=== PATIENT | male | born 1960 | race Caucasian/White ===

== ENCOUNTER → 2017-09-18 | Outpatient (CLI) | payer BC ==
[2017-09-18 10:41] LABS: ABSOLUTE BASOPHILS # (AUTO) 0.1 10^3/uL (0.0-0.2); ABSOLUTE EOSINOPHILS # (AUTO) 0.2 10^3/uL (0.0-0.6); ABSOLUTE LYMPHOCYTES (AUTO) 1.6 10^3/uL (0.5-4.7); ABSOLUTE MONOCYTES (AUTO) 0.4 10^3/uL (0.1-1.4); ABSOLUTE NEUT (AUTO) 3.6 10^3/uL (1.7-8.2); BASOPHILS % (AUTO) 1.8 % (0-2); EOSINOPHILS % (AUTO) 3.7 % (0-6); HEMATOCRIT 43.1 % (37.9-51.0); LYMPHOCYTES % (AUTO) 27.3 % (13-45); MEAN CORPUSCULAR HEMOGLOBIN 31.9 pg (27.0-33.4); MEAN CORPUSCULAR HGB CONC 34.8 g/dL (32.0-36.0); MEAN CORPUSCULAR VOLUME 92 fl (80-97); MONOCYTES % (AUTO) 6.2 % (3-13); PLATELET COUNT 283 10^3/uL (150-450); RED BLOOD COUNT 4.71 10^6/uL (4.35-5.55); RED CELL DISTRIBUTION WIDTH 12.9 % (11.5-14.0); TOTAL CELLS COUNTED % (AUTO) 100 %; WHITE BLOOD COUNT 5.8 10^3/uL (4.0-10.5)
[2017-09-18 11:14] LABS: ALANINE AMINOTRANSFERASE 45 U/L (21-72); ALBUMIN 4.6 g/dL (3.5-5.0); ALKALINE PHOSPHATASE 46 U/L (38-126); ANION GAP 12 (5-19); ASPARTATE AMINO TRANSFERASE 42 U/L (17-59); BILIRUBIN,DIRECT 0.4 mg/dL (0.0-0.4); BILIRUBIN,TOTAL 0.6 mg/dL (0.2-1.3); BLOOD UREA NITROGEN 21 mg/dL (7-20); CALCIUM 10.1 mg/dL (8.4-10.2); CARBON DIOXIDE 24 mmol/L (22-30); CHLORIDE 107 mmol/L (98-107); GLUCOSE 103 mg/dL (75-110); POTASSIUM 5.8 mmol/L (3.6-5.0); SODIUM 143.1 mmol/L (137-145); TOTAL PROTEIN 8.1 g/dL (6.3-8.2)
[2017-09-18 11:18] LABS: C-REACTIVE PROTEIN < 5.0 mg/L (<10.0)
--- NOTE | 2017-09-18 11:24 | RADIOLOGY REPORT (SQ) ---
EXAM DESCRIPTION: FOOT LEFT COMPLETE COMPLETED DATE/TIME: 09/18/2017 10:49 am REASON FOR STUDY: NON PRESSURE ULCER LEFT FOOT FAT LAYER EXPOSED L97.522 NON-PRS CHRONIC ULCER OTH PRT LEFT FOOT W FAT LAYER COMPARISON: None. NUMBER OF VIEWS: Three views. TECHNIQUE: AP, lateral and oblique radiographic images acquired of the left foot. LIMITATIONS: None. FINDINGS: MINERALIZATION: Normal. BONES: No fracture dislocation. No evidence of osteomyelitis. JOINTS: No effusions. SOFT TISSUES: No soft tissue swelling. No foreign body. OTHER: No other significant finding. IMPRESSION: NEGATIVE STUDY OF THE LEFT FOOT. NO RADIOGRAPHIC EVIDENCE OF ACUTE INJURY OR OSTEOMYELIT IS. TECHNICAL DOCUMENTATION: JOB ID: [id number] [employer]- All Rights Reserved Reading location - IP/workstation name: [email or web address]
[2017-09-18 11:37] LABS: ERYTHROCYTE SEDIMENTATION RATE 26 mm/hr (0-20)
== END ==
LOC: OD 10:09
PROVIDERS: ATTEND Preventive Medicine Undersea and Hyperbaric Medicine
DX: L97.522 Non-pressure chronic ulcer of other part of left foot with fat layer exposed (principal)
CPT/HCPCS: 36415; 80053; 85025; 85652; 86140

== ENCOUNTER → 2017-11-18 | Outpatient (CLI) | payer BC ==
[2017-11-18 13:56] LABS: ABSOLUTE BASOPHILS # (AUTO) 0.1 10^3/uL (0.0-0.2); ABSOLUTE EOSINOPHILS # (AUTO) 0.2 10^3/uL (0.0-0.6); ABSOLUTE LYMPHOCYTES (AUTO) 1.3 10^3/uL (0.5-4.7); ABSOLUTE MONOCYTES (AUTO) 0.5 10^3/uL (0.1-1.4); ABSOLUTE NEUT (AUTO) 4.1 10^3/uL (1.7-8.2); EOSINOPHILS % (AUTO) 3.3 % (0-6); HEMATOCRIT 42.2 % (37.9-51.0); HEMOGLOBIN 14.7 g/dL (13.5-17.0); LYMPHOCYTES % (AUTO) 21.7 % (13-45); MEAN CORPUSCULAR HEMOGLOBIN 31.6 pg (27.0-33.4); MEAN CORPUSCULAR HGB CONC 34.9 g/dL (32.0-36.0); MEAN CORPUSCULAR VOLUME 91 fl (80-97); MONOCYTES % (AUTO) 7.9 % (3-13); PLATELET COUNT 250 10^3/uL (150-450); RED BLOOD COUNT 4.65 10^6/uL (4.35-5.55); RED CELL DISTRIBUTION WIDTH 13.2 % (11.5-14.0); SEGMENTED NEUTROPHILS % (AUTO) 66.1 % (42-78); TOTAL CELLS COUNTED % (AUTO) 100 %; WHITE BLOOD COUNT 6.1 10^3/uL (4.0-10.5)
[2017-11-18 14:23] LABS: BLOOD UREA NITROGEN 20 mg/dL (7-20); CALCIUM 10.3 mg/dL (8.4-10.2); GLUCOSE 154 mg/dL (75-110)
[2017-11-18 14:24] LABS: ALANINE AMINOTRANSFERASE 31 U/L (21-72); ALBUMIN 4.4 g/dL (3.5-5.0); ALKALINE PHOSPHATASE 52 U/L (38-126); ANION GAP 12 (5-19); ASPARTATE AMINO TRANSFERASE 28 U/L (17-59); BILIRUBIN,DIRECT 0.4 mg/dL (0.0-0.4); CARBON DIOXIDE 27 mmol/L (22-30); CHLORIDE 104 mmol/L (98-107); POTASSIUM 4.5 mmol/L (3.6-5.0); SODIUM 142.7 mmol/L (137-145); TOTAL PROTEIN 7.6 g/dL (6.3-8.2)
[2017-11-18 14:46] LABS: ERYTHROCYTE SEDIMENTATION RATE 41 mm/hr (0-20)
== END ==
LOC: OD 12:27
PROVIDERS: ATTEND Preventive Medicine Undersea and Hyperbaric Medicine
DX: L97.522 Non-pressure chronic ulcer of other part of left foot with fat layer exposed (principal)
CPT/HCPCS: 36415; 80053; 85025; 85652; 86140

== ENCOUNTER → 2017-11-21 | Outpatient (CLI) | payer BC ==
--- NOTE | 2017-11-23 18:14 | RADIOLOGY REPORT (SQ) ---
EXAM DESCRIPTION: MRI LT LOWER EXTREMITY COMBO COMPLETED DATE/TIME: 11/21/2017 9:24 am REASON FOR STUDY: L97.522 NON-PRESSURE CHRONIC ULCER OF OTHER PART OF LEFT FOOT WITH FAT LAYE L97.52 2 NON-PRS CHRONIC ULCER OTH PRT LEFT FOOT W FAT LAYER COMPARISON: None. TECHNIQUE: Multiplanar imaging of the left foot to include T1-weighted, postcontrast T1-weighted, an d T2-weighted images. CONTRAST TYPE AND DOSE: 10 mL Prohance. RENAL FUNCTION: GFR 50 LIMITATIONS: None. FINDINGS: BONE MARROW: No marrow signal alteration. Specifically no marrow replacement or marrow ed darline. No evidence for osteomyelitis. No cortical break through. SOFT TISSUES: Plantar wound consistent with known ulcer underlying the great toe roughly at the MP genet int extending laterally between the 1st and 2nd toes and lying adjacent to the lateral hallux sesamoi d. This extends close to 2.9 cm along the length of the toe, nearly 2.2 cm transverse dimension. Mi ld regional edema and associated skin thickening but no enhancing or drainable fluid collections. No significant fluid in the tendon sheaths. OTHER: No other significant finding. IMPRESSION: Plantar ulcer without abscess or suggestion of osteomyelitis. TECHNICAL DOCUMENTATION: JOB ID: [id number] [employer]- All Rights Reserved Reading location - IP/workstation name: [email or web address]
== END ==
LOC: RAD 08:02
PROVIDERS: ATTEND Preventive Medicine Undersea and Hyperbaric Medicine
DX: L97.522 Non-pressure chronic ulcer of other part of left foot with fat layer exposed (principal)
CPT/HCPCS: 82565; 73720; A9576

== ENCOUNTER → 2018-01-26 | Outpatient (CLI) | payer BC ==
[2018-01-26 16:50] LABS: ABSOLUTE BASOPHILS # (AUTO) 0.1 10^3/uL (0.0-0.2); ABSOLUTE EOSINOPHILS # (AUTO) 0.2 10^3/uL (0.0-0.6); ABSOLUTE LYMPHOCYTES (AUTO) 1.6 10^3/uL (0.5-4.7); ABSOLUTE MONOCYTES (AUTO) 0.3 10^3/uL (0.1-1.4); ABSOLUTE NEUT (AUTO) 2.7 10^3/uL (1.7-8.2); BASOPHILS % (AUTO) 1.3 % (0-2); EOSINOPHILS % (AUTO) 3.2 % (0-6); HEMATOCRIT 41.4 % (37.9-51.0); HEMOGLOBIN 14.6 g/dL (13.5-17.0); LYMPHOCYTES % (AUTO) 32.6 % (13-45); MEAN CORPUSCULAR HEMOGLOBIN 31.4 pg (27.0-33.4); MEAN CORPUSCULAR HGB CONC 35.3 g/dL (32.0-36.0); MEAN CORPUSCULAR VOLUME 89 fl (80-97); MONOCYTES % (AUTO) 6.6 % (3-13); PLATELET COUNT 197 10^3/uL (150-450); RED BLOOD COUNT 4.65 10^6/uL (4.35-5.55); RED CELL DISTRIBUTION WIDTH 13.5 % (11.5-14.0); SEGMENTED NEUTROPHILS % (AUTO) 56.3 % (42-78); TOTAL CELLS COUNTED % (AUTO) 100 %; WHITE BLOOD COUNT 4.9 10^3/uL (4.0-10.5)
[2018-01-26 17:09] LABS: ALANINE AMINOTRANSFERASE 29 U/L (21-72); ALBUMIN 4.2 g/dL (3.5-5.0); ALKALINE PHOSPHATASE 52 U/L (38-126); ANION GAP 11 (5-19); ASPARTATE AMINO TRANSFERASE 23 U/L (17-59); BILIRUBIN,DIRECT 0.4 mg/dL (0.0-0.4); BILIRUBIN,TOTAL 1.1 mg/dL (0.2-1.3); BLOOD UREA NITROGEN 18 mg/dL (7-20); C-REACTIVE PROTEIN 5.3 mg/L (<10.0); CALCIUM 9.7 mg/dL (8.4-10.2); CARBON DIOXIDE 25 mmol/L (22-30); CHLORIDE 105 mmol/L (98-107); GLUCOSE 176 mg/dL (75-110); POTASSIUM 4.6 mmol/L (3.6-5.0); SODIUM 141.4 mmol/L (137-145); TOTAL PROTEIN 7.1 g/dL (6.3-8.2)
[2018-01-26 17:29] LABS: ERYTHROCYTE SEDIMENTATION RATE 15 mm/hr (0-20)
== END ==
LOC: OD 15:47
PROVIDERS: ATTEND Preventive Medicine Undersea and Hyperbaric Medicine
DX: E11.621 Type 2 diabetes mellitus with foot ulcer (principal); L97.522 Non-pressure chronic ulcer of other part of left foot with fat layer exposed
CPT/HCPCS: 36415; 80053; 83036; 85025; 85652; 86140

== ENCOUNTER → 2018-02-20 | Outpatient (CLI) | payer BC ==
[2018-02-20 17:06] LABS: ABSOLUTE BASOPHILS # (AUTO) 0.1 10^3/uL (0.0-0.2); ABSOLUTE EOSINOPHILS # (AUTO) 0.2 10^3/uL (0.0-0.6); ABSOLUTE LYMPHOCYTES (AUTO) 1.9 10^3/uL (0.5-4.7); ABSOLUTE MONOCYTES (AUTO) 0.4 10^3/uL (0.1-1.4); ABSOLUTE NEUT (AUTO) 2.9 10^3/uL (1.7-8.2); BASOPHILS % (AUTO) 1.1 % (0-2); EOSINOPHILS % (AUTO) 3.8 % (0-6); HEMATOCRIT 45.6 % (37.9-51.0); HEMOGLOBIN 15.8 g/dL (13.5-17.0); LYMPHOCYTES % (AUTO) 34.7 % (13-45); MEAN CORPUSCULAR HEMOGLOBIN 31.2 pg (27.0-33.4); MEAN CORPUSCULAR HGB CONC 34.7 g/dL (32.0-36.0); MEAN CORPUSCULAR VOLUME 90 fl (80-97); MONOCYTES % (AUTO) 6.8 % (3-13); PLATELET COUNT 203 10^3/uL (150-450); RED BLOOD COUNT 5.07 10^6/uL (4.35-5.55); RED CELL DISTRIBUTION WIDTH 13.9 % (11.5-14.0); SEGMENTED NEUTROPHILS % (AUTO) 53.6 % (42-78); TOTAL CELLS COUNTED % (AUTO) 100 %; WHITE BLOOD COUNT 5.5 10^3/uL (4.0-10.5)
--- NOTE | 2018-02-20 17:11 | RADIOLOGY REPORT (SQ) ---
EXAM DESCRIPTION: CHEST PA/LATERAL COMPLETED DATE/TIME: 02/20/2018 4:44 pm REASON FOR STUDY: CHEST CONGESTION; RT FLANK PAIN COMPARISON: Abdominal films same date EXAM PARAMETERS: NUMBER OF VIEWS: two views TECHNIQUE: Digital Frontal and Lateral radiographic views of the chest acquired. RADIATION DOSE: NA LIMITATIONS: none FINDINGS: LUNGS AND PLEURA: No acute infiltrates. No pleural effusion or pneumothorax. Minimal lef t basilar atelectasis. MEDIASTINUM AND HILAR STRUCTURES: No masses or contour abnormalities. HEART AND VASCULAR STRUCTURES: Heart normal size. No evidence for failure. BONES: Osteopenic. No acute fracture HARDWARE: None in the chest. OTHER: No other significant finding. IMPRESSION: No acute changes TECHNICAL DOCUMENTATION: JOB ID: [id number] [employer]- All Rights Reserved Reading location - IP/workstation name: [email or web address]
--- NOTE | 2018-02-20 17:12 | RADIOLOGY REPORT (SQ) ---
EXAM DESCRIPTION: KUB COMPLETED DATE/TIME: 02/20/2018 4:44 pm REASON FOR STUDY: CHEST CONGESTION; RT FLANK PAIN R09.89 OTH SYMPTOMS AND SIGNS INVOLVING THE CIRC AND RESP SY R10.9 UNSPECIFIED ABDOMINAL PAIN COMPARISON: Chest films same date NUMBER OF VIEWS: One view. TECHNIQUE: Supine radiographic image of the abdomen acquired. LIMITATIONS: None. FINDINGS: BOWEL GAS PATTERN: Normal bowel gas pattern. No dilated loops. CALCIFICATIONS: No suspicious calcifications. SOFT TISSUES: No gross mass or suggestion of organomegaly. HARDWARE: Surgical clips left upper quadrant post nephrectomy. Clips right upper quadrant post daniella cystectomy. Radiopaque sutures along the right inguinal region from remote prior inguinal hernia rep air BONES: No acute fracture. No worrisome bone lesions. OTHER: No other significant finding. IMPRESSION: NO RADIOGRAPHIC EVIDENCE FOR ACUTE ABDOMINAL DISEASE. TECHNICAL DOCUMENTATION: JOB ID: [id number] [employer]- All Rights Reserved Reading location - IP/workstation name: [email or web address]
[2018-02-20 17:29] LABS: ALANINE AMINOTRANSFERASE 30 U/L (21-72); ALKALINE PHOSPHATASE 73 U/L (38-126); ANION GAP 16 (5-19); ASPARTATE AMINO TRANSFERASE 26 U/L (17-59); BILIRUBIN,DIRECT 0.4 mg/dL (0.0-0.4); BLOOD UREA NITROGEN 20 mg/dL (7-20); C-REACTIVE PROTEIN < 5.0 mg/L (<10.0); CALCIUM 10.1 mg/dL (8.4-10.2); CARBON DIOXIDE 27 mmol/L (22-30); CHLORIDE 100 mmol/L (98-107); GLUCOSE 214 mg/dL (75-110); POTASSIUM 4.7 mmol/L (3.6-5.0); SODIUM 143.1 mmol/L (137-145)
[2018-02-20 17:47] LABS: ERYTHROCYTE SEDIMENTATION RATE 13 mm/hr (0-20)
== END ==
LOC: OD 15:49
PROVIDERS: ATTEND Family Medicine
DX: R10.9 Unspecified abdominal pain (principal); R09.89 Other specified symptoms and signs involving the circulatory and respiratory systems
CPT/HCPCS: 36415; 71046; 74018; 80053; 85025; 85652; 86140

== ENCOUNTER → 2018-05-14 | Outpatient (CLI) | payer BC ==
[2018-05-14 11:10] LABS: ABSOLUTE LYMPHOCYTES (AUTO) 0.8 10^3/uL (0.5-4.7); ABSOLUTE MONOCYTES (AUTO) 0.6 10^3/uL (0.1-1.4); ABSOLUTE NEUT (AUTO) 4.1 10^3/uL (1.7-8.2); BASOPHILS % (AUTO) 0.8 % (0-2); EOSINOPHILS % (AUTO) 0.8 % (0-6); HEMATOCRIT 44.2 % (37.9-51.0); HEMOGLOBIN 15.5 g/dL (13.5-17.0); LYMPHOCYTES % (AUTO) 14.9 % (13-45); MEAN CORPUSCULAR VOLUME 92 fl (80-97); MONOCYTES % (AUTO) 10.5 % (3-13); PLATELET COUNT 210 10^3/uL (150-450); RED BLOOD COUNT 4.83 10^6/uL (4.35-5.55); RED CELL DISTRIBUTION WIDTH 13.4 % (11.5-14.0); TOTAL CELLS COUNTED % (AUTO) 100 %; WHITE BLOOD COUNT 5.6 10^3/uL (4.0-10.5)
[2018-05-14 11:29] LABS: ALANINE AMINOTRANSFERASE 42 U/L (21-72); ALBUMIN 4.8 g/dL (3.5-5.0); ALKALINE PHOSPHATASE 60 U/L (38-126); ANION GAP 15 (5-19); ASPARTATE AMINO TRANSFERASE 34 U/L (17-59); BILIRUBIN,TOTAL 2.3 mg/dL (0.2-1.3); BLOOD UREA NITROGEN 25 mg/dL (7-20); CALCIUM 9.9 mg/dL (8.4-10.2); CARBON DIOXIDE 26 mmol/L (22-30); CHLORIDE 97 mmol/L (98-107); GLUCOSE 354 mg/dL (75-110); POTASSIUM 4.9 mmol/L (3.6-5.0); SODIUM 137.6 mmol/L (137-145); TOTAL PROTEIN 7.5 g/dL (6.3-8.2)
[2018-05-14 12:18] LABS: ERYTHROCYTE SEDIMENTATION RATE 25 mm/hr (0-20)
--- NOTE | 2018-05-14 12:31 | RADIOLOGY REPORT (SQ) ---
EXAM DESCRIPTION: FOOT LEFT COMPLETE COMPLETED DATE/TIME: 05/14/2018 10:14 am REASON FOR STUDY: NON-PRESSURE CHRONIC ULCER OF LEFT FOOT (L97.521) L97.521 NON-PRS CHRONIC ULCER O TH PRT L FOOT LIMITED TO BRKD COMPARISON: None. NUMBER OF VIEWS: Three views. TECHNIQUE: AP, lateral and oblique radiographic images acquired of the left foot. LIMITATIONS: None. FINDINGS: MINERALIZATION: Normal. BONES: No acute abnormality. Small plantar and dorsal calcaneal spurs. JOINTS: No effusions. SOFT TISSUES: No soft tissue swelling. No foreign body. OTHER: No other significant finding. IMPRESSION: Calcaneal spurs. There is no evidence of osteomyelitis. There is no acute osseous abno rmality. TECHNICAL DOCUMENTATION: JOB ID: [id number] [employer]- All Rights Reserved Reading location - IP/workstation name: [email or web address]
== END ==
LOC: WC 09:46
PROVIDERS: ATTEND Nurse Practitioner
DX: L97.521 Non-pressure chronic ulcer of other part of left foot limited to breakdown of skin (principal); M77.32 Calcaneal spur, left foot
CPT/HCPCS: 36415; 80053; 85025; 85652; 86140

== ENCOUNTER → 2018-06-12 | Outpatient (CLI) | payer BC ==
--- NOTE | 2018-06-12 10:10 | RADIOLOGY REPORT (SQ) ---
EXAM DESCRIPTION: C SP 4 OR 5 VIEWS COMPLETED DATE/TIME: 06/12/2018 9:31 am REASON FOR STUDY: CERVICAL RADICULOPATHY M54.12 M54.5 LOW BACK PAIN M54.12 RADICULOPATHY, CERVICAL REGION COMPARISON: None. NUMBER OF VIEWS: Five views. TECHNIQUE: AP, lateral, obliques and odontoid radiographic images acquired of the cervical spine. LIMITATIONS: None. FINDINGS: MINERALIZATION: Normal. ALIGNMENT: Anatomic. VERTEBRAE: Vertebral bodies of normal height. DISCS: Mild disc space loss of height with anterior osteophyte formation at C4-5 and C6-7. FORAMINA: Moderate right C3-4, C4-5, and C6-7 foraminal narrowing. Mild left foraminal narrowing at C6-7 LATERAL AND POSTERIOR ELEMENTS: Facets, lateral masses and spinous processes without significant find ings. HARDWARE: None in the spine. SOFT TISSUES: Carotid bifurcation calcification bilaterally OTHER: No other significant finding. IMPRESSION: Mild degenerative changes as above. Calcified carotid bifurcations bilaterally TECHNICAL DOCUMENTATION: JOB ID: [id number]- All Rights Reserved Reading location - IP/workstation name: [email or web address]
--- NOTE | 2018-06-12 10:11 | RADIOLOGY REPORT (SQ) ---
EXAM DESCRIPTION: LUMBAR SPINE COMPLETE COMPLETED DATE/TIME: 06/12/2018 9:31 am REASON FOR STUDY: LOW BACK PAIN LATERALLY WITH SCIATICA PRESENCE M54.5 M54.5 LOW BACK PAIN M54.12 RADICULOPATHY, CERVICAL REGION COMPARISON: None. NUMBER OF VIEWS: Five views including obliques. TECHNIQUE: AP, lateral, oblique, and sacral radiographic images acquired of the lumbar spine. LIMITATIONS: None. FINDINGS: MINERALIZATION: Normal. SEGMENTATION: Normal. No transitional anatomy. ALIGNMENT: Normal. VERTEBRAE: Maintained height. No fracture or worrisome bone lesion. DISCS: Preserved height. No significant osteophytes or end plate irregularity. POSTERIOR ELEMENTS: Pedicles and facets are intact. No pars defect or posterior arch defects. HARDWARE: None in the spine. Numerous surgical clips overlie the midline of the abdomen. PARASPINAL SOFT TISSUES: Normal. PELVIS: Intact as visualized. No fractures or worrisome bone lesions. SI joints intact. OTHER: No other significant finding. IMPRESSION: NORMAL 5 VIEW LUMBAR SPINE. TECHNICAL DOCUMENTATION: JOB ID: [id number]- All Rights Reserved Reading location - IP/workstation name: [email or web address]
== END ==
LOC: OD 08:59
PROVIDERS: ATTEND Family Medicine
DX: M54.12 Radiculopathy, cervical region (principal); M54.5 Low back pain
CPT/HCPCS: 72050; 72110

== ENCOUNTER → 2018-07-13 | Outpatient (CLI) | payer BC ==
[2018-07-13 09:45] LABS: ABSOLUTE BASOPHILS # (AUTO) 0.1 10^3/uL (0.0-0.2); ABSOLUTE EOSINOPHILS # (AUTO) 0.3 10^3/uL (0.0-0.6); ABSOLUTE LYMPHOCYTES (AUTO) 1.6 10^3/uL (0.5-4.7); ABSOLUTE MONOCYTES (AUTO) 0.3 10^3/uL (0.1-1.4); BASOPHILS % (AUTO) 1.3 % (0-2); HEMATOCRIT 44.1 % (37.9-51.0); HEMOGLOBIN 15.4 g/dL (13.5-17.0); LYMPHOCYTES % (AUTO) 30.5 % (13-45); MEAN CORPUSCULAR HEMOGLOBIN 31.8 pg (27.0-33.4); MEAN CORPUSCULAR VOLUME 91 fl (80-97); MONOCYTES % (AUTO) 5.8 % (3-13); PLATELET COUNT 199 10^3/uL (150-450); RED BLOOD COUNT 4.86 10^6/uL (4.35-5.55); RED CELL DISTRIBUTION WIDTH 12.8 % (11.5-14.0); SEGMENTED NEUTROPHILS % (AUTO) 56.4 % (42-78); TOTAL CELLS COUNTED % (AUTO) 100 %; WHITE BLOOD COUNT 5.4 10^3/uL (4.0-10.5)
[2018-07-13 10:18] LABS: ALANINE AMINOTRANSFERASE 48 U/L (21-72); ALBUMIN 4.5 g/dL (3.5-5.0); ALKALINE PHOSPHATASE 59 U/L (38-126); ANION GAP 9 (5-19); ASPARTATE AMINO TRANSFERASE 32 U/L (17-59); BILIRUBIN,DIRECT 0.3 mg/dL (0.0-0.4); BILIRUBIN,TOTAL 0.7 mg/dL (0.2-1.3); BLOOD UREA NITROGEN 30 mg/dL (7-20); CALCIUM 10.1 mg/dL (8.4-10.2); CARBON DIOXIDE 25 mmol/L (22-30); CHLORIDE 108 mmol/L (98-107); GLUCOSE 192 mg/dL (75-110); POTASSIUM 4.5 mmol/L (3.6-5.0); SODIUM 141.6 mmol/L (137-145); TOTAL PROTEIN 7.5 g/dL (6.3-8.2)
[2018-07-13 10:24] LABS: ERYTHROCYTE SEDIMENTATION RATE 10 mm/hr (0-20)
[2018-07-13 10:53] LABS: C-REACTIVE PROTEIN < 5.0 mg/L (<10.0)
--- NOTE | 2018-07-13 13:06 | RADIOLOGY REPORT (SQ) ---
EXAM DESCRIPTION: FOOT LEFT COMPLETE COMPLETED DATE/TIME: 07/13/2018 9:34 am REASON FOR STUDY: NON-PRS CHRONIC ULCER OTH PRT L FOOT LIMITED TO BRKDWN SKIN L97.521 NON-PRS CHRON IC ULCER OTH PRT L FOOT LIMITED TO BRKD COMPARISON: 05/14/3018 NUMBER OF VIEWS: Three views. TECHNIQUE: AP, lateral and oblique radiographic images acquired of the left foot. LIMITATIONS: None. FINDINGS: MINERALIZATION: Normal. BONES: No acute fracture, destruction of bone or dislocation. Calcaneal spurs. JOINTS: No effusions. SOFT TISSUES: No soft tissue swelling. No foreign body. OTHER: No other significant finding. IMPRESSION: 1. No significant interval changes since the prior examination dated 07/13/2018. No acut e osseous findings. 2. Calcaneal spurs. TECHNICAL DOCUMENTATION: JOB ID: [id number] [employer]- All Rights Reserved Reading location - IP/workstation name: [email or web address]
== END ==
LOC: WC 09:01
PROVIDERS: ATTEND Preventive Medicine Undersea and Hyperbaric Medicine
DX: L97.521 Non-pressure chronic ulcer of other part of left foot limited to breakdown of skin (principal)
CPT/HCPCS: 36415; 80053; 85025; 85652; 86140

== ENCOUNTER → 2020-01-05 | Outpatient (CLI) | payer BC ==
--- NOTE | 2020-01-05 08:28 | RADIOLOGY REPORT (SQ) ---
EXAM DESCRIPTION: CT ABD/PELVIS NO ORAL OR IV IMAGES COMPLETED DATE/TIME: 01/05/2020 7:25 am REASON FOR STUDY: K45.8 OTH ABDOMINAL HERNIA WITHOUT OBSTRUCTION OR GANGRENE K45.8 OTH ABDOMINAL HE RNIA WITHOUT OBSTRUCTION OR GANGRENE COMPARISON: None. TECHNIQUE: CT scan of the abdomen and pelvis performed without intravenous or oral contrast. Images reviewed with lung, soft tissue, and bone windows. Reconstructed coronal and sagittal MPR images revi ewed. All images stored on PACS. All CT scanners at this facility use dose modulation, iterative reconstruction, and/or weight based d osing when appropriate to reduce radiation dose to as low as reasonably achievable (ALARA). [facility]: Dose Right [facility]: CareDose [facility]: Dose Right [facility]: Teradose 4D [facility]: Smart Carmudi RADIATION DOSE: CT Rad equipment meets quality standard of care and radiation dose reduction techniq ues were employed. CTDIvol: 12.8 mGy. DLP: 678 mGy-cm.mGy. LIMITATIONS: None. FINDINGS: LOWER CHEST: Scarring in the anterior aspect of the right lung base. No consolidation. N o suspicious nodules. NON-CONTRASTED LIVER, SPLEEN, ADRENALS: The liver and adrenals are unremarkable. The spleen is part of a large posterior upper lateral wall hernia containing omental fat spleen and small bowel. No obs tructive changes. The hernia lies between the 10th and 11th posterior ribs. PANCREAS: Head and body of the pancreas appear normal. The tail the pancreas demonstrates loss of no rmal morphology. This is in the region of prior left nephrectomy. This could be secondary to postop for scar tissue although pancreatic mass or recurrent disease in the renal fossa. Recommend contras nathalia CT for further characterization. GALLBLADDER: Surgically absent. RIGHT KIDNEY AND URETER: No suspicious masses. Assessment limited by lack of IV contrast. No signif icant calcifications. No hydronephrosis or hydroureter. LEFT KIDNEY AND URETER: Prior left nephrectomy as described. Soft tissue attenuation in the left re nal bed which may be secondary to scarring. Recurrent tumor or pancreatic tail mass are all possibil ities. Contrasted study is recommended for further evaluation. AORTA AND RETROPERITONEUM: No aneurysm. No retroperitoneal masses or adenopathy. BOWEL AND PERITONEAL CAVITY: No obvious masses or inflammatory changes. No free fluid. APPENDIX: Normal. PELVIS, BLADDER, AND ABDOMINAL WALL:Postsurgical changes in the right inguinal region extending to th e pubic symphysis. Bladder is incompletely distended. BONES: No significant findings. OTHER: No other significant finding. IMPRESSION: 1. Large posterolateral wall abdominal hernia extending through the 10th and left checker dump grounds ior ribs. This includes omental fat, spleen and small bowel. No evidence of bowel obstruction. 2. Soft tissue mass in the left renal fossa. This could represent postoperative scar. Pancreatic t ail mass or recurrent disease in the left renal fossa cannot be excluded. Was the kidney removed for neoplasm? COMMENT: Quality ID # [id number]: Final reports with documentation of one or more dose reduction techniques (e.g., Automated exposure control, adjustment of the mA and/or kV according to patient size, use of iterative reconstruction technique) TECHNICAL DOCUMENTATION: JOB ID: [id number] [employer]- All Rights Reserved Reading location - IP/workstation name: [email or web address]
== END ==
LOC: RAD 07:17
PROVIDERS: ATTEND Surgery
DX: K45.8 Other specified abdominal hernia without obstruction or gangrene (principal)
CPT/HCPCS: 74176

== ENCOUNTER 2020-01-27 05:23 | Inpatient (IN) | payer BC ==
[2020-01-24 11:54] LABS: ABSOLUTE BASOPHILS # (AUTO) 0.1 10^3/uL (0.0-0.2); ABSOLUTE EOSINOPHILS # (AUTO) 0.5 10^3/uL (0.0-0.6); ABSOLUTE LYMPHOCYTES (AUTO) 1.5 10^3/uL (0.5-4.7); ABSOLUTE MONOCYTES (AUTO) 0.5 10^3/uL (0.1-1.4); ABSOLUTE NEUT (AUTO) 3.7 10^3/uL (1.7-8.2); EOSINOPHILS % (AUTO) 7.8 % (0-6); HEMATOCRIT 46.6 % (37.9-51.0); HEMOGLOBIN 16.1 g/dL (13.5-17.0); LYMPHOCYTES % (AUTO) 24.3 % (13-45); MEAN CORPUSCULAR HEMOGLOBIN 31.5 pg (27.0-33.4); MEAN CORPUSCULAR HGB CONC 34.5 g/dL (32.0-36.0); MEAN CORPUSCULAR VOLUME 91 fl (80-97); MONOCYTES % (AUTO) 7.8 % (3-13); PLATELET COUNT 198 10^3/uL (150-450); RED BLOOD COUNT 5.11 10^6/uL (4.35-5.55); RED CELL DISTRIBUTION WIDTH 13.1 % (11.5-14.0); SEGMENTED NEUTROPHILS % (AUTO) 58.1 % (42-78); TOTAL CELLS COUNTED % (AUTO) 100 %; WHITE BLOOD COUNT 6.4 10^3/uL (4.0-10.5)
[2020-01-24 12:14] LABS: ANION GAP 18 (5-19); BLOOD UREA NITROGEN 19 mg/dL (7-20); CALCIUM 9.9 mg/dL (8.4-10.2); CARBON DIOXIDE 18 mmol/L (22-30); CHLORIDE 107 mmol/L (98-107); GLUCOSE 73 mg/dL (75-110); POTASSIUM 4.9 mmol/L (3.6-5.0)
--- NOTE | 2020-01-24 19:54 | EKG REPORT ---
SEVERITY:- ABNORMAL ECG - SINUS RHYTHM NONSPECIFIC T ABNORMALITIES, LATERAL LEADS : Confirmed by: Taj Riojas 24-Jan-2020 19:53:28
[~2020-01-27 05:23] MED LIST: CEFAZOLIN 2 GM/D5W RTU 2 GM/50 ML RTUPB IV ONE; CEFAZOLIN 2 GM/D5W RTU 2 GM/50 ML RTUPB IV PRN; LIDOCAINE 0.5% INJ-PF (5 MG/ML) 50 ML SDV SUBCUT PRN; METRONIDAZOLE 500 MG/NS RTU 500 MG/100 ML RTUPB IV ONE; METRONIDAZOLE 500 MG/NS RTU 500 MG/100 ML RTUPB IV PRN; NORMAL SALINE 1000 ML (RENAL PATIENTS) IV PRN
[2020-01-27] MEDS ORDERED: FENTANYL CITRATE INJ/PF 100 MCG/2 ML AMPUL ONE (07:03)
[2020-01-27] MEDS ORDERED: MIDAZOLAM 2 MG/2 ML INJ ONE (07:03)
[2020-01-27] MEDS ORDERED: PROPOFOL INJ 200 MG/20 ML VIAL IV ONE (07:04)
[2020-01-27] MEDS ORDERED: HYDROMORPHONE HCL INJ/PF 2 MG/ML AMPULE ONE ×2 (07:04→12:35)
[2020-01-27] MEDS ORDERED: BUPIVACAINE INJ/PF LIPOSOME/PF 266 MG/20 ML SDV ONE (09:30)
[2020-01-27] MEDS ORDERED: MEPERIDINE HCL/PF INJ 25 MG/1 ML DISP.SYRIN IV PRN (10:20)
[2020-01-27] MEDS ORDERED: DIPHENHYDRAMINE HCL 50 MG/ML VIAL IV PRN (10:20)
[2020-01-27] MEDS ORDERED: ONDANSETRON HCL INJ/PF 4 MG/2 ML SDV IV PRN (10:20)
[2020-01-27] MEDS ORDERED: FENTANYL CITRATE INJ/PF 100 MCG/2 ML AMPUL IV PRN ×3 (10:20)
[2020-01-27] MEDS ORDERED: MORPHINE SULFATE 10 MG/ML INJ IV PRN (10:20)
[2020-01-27] MEDS ORDERED: DEXAMETHASONE SOD PHOSPHATE INJ 4 MG/1 ML VIAL ONE (11:26)
[2020-01-27] MEDS ORDERED: ONDANSETRON HCL INJ/PF 4 MG/2 ML SDV ONE (11:26)
[2020-01-27] MEDS ORDERED: ROCURONIUM BROMIDE INJ 50 MG/5 ML VIAL IV ONE (11:26)
[2020-01-27] MEDS ORDERED: NEOSTIGMINE METHYLSULFATE 10 MG/10 ML VIAL ONE (11:26)
[2020-01-27] MEDS ORDERED: GLYCOPYRROLATE 1 MG/5 ML VIAL ONE (11:26)
[2020-01-27] MEDS ORDERED: CEFAZOLIN 2 GM/D5W RTU 50 ML IV SCH (14:00)
[2020-01-27] MEDS ORDERED: FAMOTIDINE INJ/PF 20 MG/2 ML SDV IV ONE (14:26)
[2020-01-27] MEDS ORDERED: DEXTROSE 40% GEL 15 GM TUBE PO PRN (16:30)
[2020-01-27] MEDS ORDERED: DEXTROSE 40% GEL 15 GM TUBE X 2 PO PRN (16:30)
[2020-01-27] MEDS ORDERED: GLUCAGON,HUMAN RECOMB 1 MG INJ IM PRN (16:30)
[2020-01-27] MEDS ORDERED: DEXTROSE 50%-WATER SYRINGE 25 GM/50 ML DOSE IV PRN (16:30)
[2020-01-27] MEDS ORDERED: DEXTROSE 50%-WATER SYRINGE 12.5 GM/25 ML DOSE IV PRN (16:30)
--- NOTE | 2020-01-27 17:00 | Operative Report ---
Nonrecallable Operative Report DATE OF SURGERY: 01/27/20 PREOPERATIVE DIAGNOSIS: abdomianal flank hernia distal pancreatic mass. POSTOPERATIVE DIAGNOSIS: Abdominal flank hernia distal pancreatic cancer with hepatic metastasis OPERATION: Distal pancreatectomy splenectomy left lateral hepatic lobectomy repair of left flank hernia SURGEON: ROSINA ROTH [employer] TESTER: AUSTIN QUINONES ANESTHESIA: GA TISSUE REMOVED OR ALTERED: Distal pancreas and spleen left lateral hepatic lobe COMPLICATIONS: None ESTIMATED BLOOD LOSS: 500 cc INTRAOPERATIVE FINDINGS: See note PROCEDURE: Patient was brought to the operating room awake alert stable condition placed on the operative table in supine position induced under general esthesia intubated. He was then placed in the right lateral decubitus position for access to the left flank hernia we able to flex the bed and get better access to the subcostal region where the left flank hernia emanated from. Patient had a previous left nephrectomy for renal cell carcinoma number years ago with this resultant flank hernia. In addition to that on preoperative CT scan there was a questionable distal pancreatic mass. An incision was made in the previous left flank scar with a 10 blade dissection was carried down through subtenons tissue with Bovie cautery. The muscles of the rectus and latissimus muscles were divided with Bovie cautery they were intact there was no obvious hernia there was just a attenuated musculature and thinned fascia but no obvious hernia. We gained access the abdominal cavity by dividing the peritoneum. Once we did this we placed the big boy retractor to get underneath the left costal margin to retracted cephalad. This this brought into view the spleen. And the stomach. To gain access to the pancreas I took down the short gastric vessels with the LigaSure device from the mid greater curvature to the angle of Hiss. We then retracted the stomach anterior laterally. This gave access to the pancreas. Upon palpation of the pancreas and the hilum of the spleen there was a large mass about 4 cm in diameter that appeared to be either metastatic renal cell carcinoma or a new pancreatic mass. I therefore incised the peritoneum on the inferior edge of the pancreas to gain access to the undersurface of the mid pancreatic body with blunt sharp dissection. We then did identified the splenic artery on the top of the pancreas after incising that peritoneum. I was able to doubly ligate the splenic artery and divided. This allowed this spleen to reduce in size. We then continued our mobilization with sharp and blunt dissection of the inferior aspect of the pancreas all the way to the spleen. Once we did this we took down the lienal splenic ligaments with sharp dissection. We then divided the body the pancreas 2 firings of the AZALIA stapler with a green load. This essentially divided the splenic vein the splenic artery had previously been divided between 0 silk ligatures. We then continued our mobilization of the tail the pancreas with ability to mobilize the distal pancreatic mass away from the posterior muscles as well as the diaphragm. We then were able to remove the spleen pancreas and pancreatic mass in total. This was sent to pathology. Pathology revealed to be pancreatic cancer. The margins of the pancreatic resection were negative. We then copiously irrigated the abdominal cavity suctioned dry. Palpation of the right lobe of the liver revealed no evidence of any further metastatic disease however the left lateral segment of the liver revealed a approximately 3 cm diameter metastatic deposit. I excised this by dividing the left lateral hepatic lobe with the LigaSure device on the right medial margin of the mass incising the mass in total. This was sent down as a separate specimen. Hemostasis of the edge of the liver was obtained with [id number] placed 0 chromic sutures. Bovie cautery was also used to obtain good hemostasis. Once this was done we placed a Nirav-Ortega drain in the splenic fossa with the edge of the drain abutting the edge of the resected pancreas. I should say that I closed the resected edge of the pancreas with [id number] placed 0 silk sutures. We then closed the lateral wound by approximately reapproximated latissimus muscles and the rectus muscle with interrupted placed #2 Vicryl sutures. We closed the skin with subcutaneous 3-0 Vicryl and skin was closed with standard skin clips. Estimated blood loss of procedure was 500 cc sponge needle counts correct x2. JERMAIN Garcia was present for the entire operation for help with wound retraction wound closure.
[2020-01-27] MEDS: POTASSI CL 20 MEQ/D5-1/2NS 1L 1,000 ML IV PRN (17:43)
[2020-01-27] MEDS: MORPHINE SULFATE 10 MG/ML INJ IV PRN (17:47)
[2020-01-27] MEDS: FAMOTIDINE INJ/PF 20 MG/2 ML SDV IV SCH ×2 (17:48→21:08)
[2020-01-27] MEDS: CEFAZOLIN SODIUM 2 GM in DEXTROSE 5%-WATER 100 ML IV SCH (17:54)
[2020-01-27] MEDS: INSULIN LISPRO 100 UNIT/ML 3 ML VIAL SUBCUT SCH (21:07)
[2020-01-27] MEDS ORDERED: FAMOTIDINE INJ/PF 20 MG/2 ML SDV IV SCH (22:00)
[2020-01-28] MEDS ORDERED: INSULIN REG, HUMAN 100 UNIT/ML 3 ML VIAL (PYX) SUBCUT ONE ×2 (00:30→06:45)
[2020-01-28] MEDS: POTASSI CL 20 MEQ/D5-1/2NS 1L 1,000 ML IV PRN (01:58)
[2020-01-28] MEDS: CEFAZOLIN SODIUM 2 GM in DEXTROSE 5%-WATER 100 ML IV SCH ×3 (01:58→17:28)
[2020-01-28] MEDS: MORPHINE SULFATE 10 MG/ML INJ IV PRN ×4 (02:09→21:58)
[2020-01-28 05:03] LABS: ABSOLUTE LYMPHOCYTES (AUTO) 0.8 10^3/uL (0.5-4.7); ABSOLUTE MONOCYTES (AUTO) 1.7 10^3/uL (0.1-1.4); ABSOLUTE NEUT (AUTO) 12.3 10^3/uL (1.7-8.2); BASOPHILS % (AUTO) 0.1 % (0-2); HEMATOCRIT 39.8 % (37.9-51.0); HEMOGLOBIN 13.6 g/dL (13.5-17.0); LYMPHOCYTES % (AUTO) 5.4 % (13-45); MEAN CORPUSCULAR HEMOGLOBIN 31.4 pg (27.0-33.4); MEAN CORPUSCULAR HGB CONC 34.1 g/dL (32.0-36.0); MEAN CORPUSCULAR VOLUME 92 fl (80-97); MONOCYTES % (AUTO) 11.8 % (3-13); PLATELET COUNT 253 10^3/uL (150-450); RED BLOOD COUNT 4.32 10^6/uL (4.35-5.55); RED CELL DISTRIBUTION WIDTH 12.8 % (11.5-14.0); SEGMENTED NEUTROPHILS % (AUTO) 82.7 % (42-78); TOTAL CELLS COUNTED % (AUTO) 100 %; WHITE BLOOD COUNT 14.9 10^3/uL (4.0-10.5)
[2020-01-28 05:20] LABS: ALBUMIN 3.9 g/dL (3.5-5.0); ALKALINE PHOSPHATASE 47 U/L (38-126); ANION GAP 13 (5-19); ASPARTATE AMINO TRANSFERASE 388 U/L (17-59); BILIRUBIN,DIRECT 0.4 mg/dL (0.0-0.4); BILIRUBIN,TOTAL 0.6 mg/dL (0.2-1.3); BLOOD UREA NITROGEN 21 mg/dL (7-20); CALCIUM 8.8 mg/dL (8.4-10.2); CARBON DIOXIDE 20 mmol/L (22-30); CHLORIDE 99 mmol/L (98-107); GLUCOSE 319 mg/dL (75-110); POTASSIUM 5.1 mmol/L (3.6-5.0)
--- NOTE | 2020-01-28 08:45 | Progress Note ---
Provider Note Provider Note: Oncology consult was received. I briefly met patient and . However, pathology report not yet available. I will be happy to complete full consultation after path is finalized and discuss all findings and recommendations with the patient at that time.
[2020-01-28] MEDS: INSULIN LISPRO 100 UNIT/ML 3 ML VIAL SUBCUT SCH ×4 (09:33→22:00)
[2020-01-28] MEDS: FAMOTIDINE INJ/PF 20 MG/2 ML SDV IV SCH ×2 (09:34→21:58)
[2020-01-28] MEDS: POTASSI CL 20 MEQ/1/2NS 1L 1000 ML IV PRN ×2 (09:52→18:56)
[2020-01-28] MEDS ORDERED: INSULIN LISPRO 100 UNIT/ML 3 ML VIAL SUBCUT SCH (11:00)
--- NOTE | 2020-01-28 11:08 | PDOC PROGRESS REPORT ---
Subjective Progress Note for:: 01/28/20 - ` Subjective:: feels ok up in chair Reason For Visit: K86.89 OTHER SPECIFIED DISEASES OF PANCREAS Physical Exam Vital Signs: Temp Pulse Resp BP Pulse Ox 98.2 F 109 H 17 132/69 H 96 01/28/20 10:00 01/28/20 07:42 01/28/20 07:42 01/28/20 07:42 01/28/20 07:42 Intake & Output 01/27/20 01/28/20 01/29/20 06:59 06:59 06:59 Intake Total 0 5210 100 Output Total 2310 Balance 0 2900 100 Weight 101.8 kg General appearance: PRESENT: no acute distress Head exam: PRESENT: normocephalic Eye exam: PRESENT: EOMI Ear exam: PRESENT: normal external ear exam Mouth exam: PRESENT: moist Neck exam: PRESENT: full ROM Respiratory exam: PRESENT: clear to auscultation celia Cardiovascular exam: PRESENT: RRR Pulses: PRESENT: normal radial pulses, normal femoral pulses Vascular exam: PRESENT: normal capillary refill GI/Abdominal exam: PRESENT: soft Rectal exam: PRESENT: deferred Gentrourinary exam: PRESENT: indwelling catheter Extremities exam: PRESENT: full ROM Musculoskeletal exam: PRESENT: full ROM Neurological exam: PRESENT: alert, awake, oriented to person, oriented to place Psychiatric exam: PRESENT: appropriate affect Skin exam: PRESENT: dry Results Laboratory Results: 01/28/20 04:23 01/28/20 04:23 01/28/20 01/28/20 04:23 04:23 WBC 14.9 H RBC 4.32 L Hgb 13.6 Hct 39.8 MCV 92 MCH 31.4 MCHC 34.1 RDW 12.8 Plt Count 253 Seg Neutrophils % 82.7 H Sodium 132.3 L Potassium 5.1 H Chloride 99 Carbon Dioxide 20 L Anion Gap 13 BUN 21 H Creatinine 1.50 H Est GFR ( Amer) 58 L Glucose 319 H Calcium 8.8 Total Bilirubin 0.6 AST 388 H Alkaline Phosphatase 47 Total Protein 6.0 L Albumin 3.9 Assessment & Plan - Time Anticipated Discharge Disposition: Home, Self Care Anticipated Discharge Timeframe: within 48 hours - Plan Summary Plan Summary: Impression status post distal pancreatectomy splenectomy partial hepatic lobecto my. Abdominal hernia repair Patient doing well today has had some flatus now is up in the chair feels well is concerned about his higher blood sugars now that he is off his insulin pump while in the hospital this morning her his blood glucose was in the 300 range. Plan we will remove his Kelsey start him on a full liquid diet increase insulin sliding scale to a more sensitive level Increase ambulation in the hallways possible DC home soon.
[2020-01-29] MEDS: CEFAZOLIN SODIUM 2 GM in DEXTROSE 5%-WATER 100 ML IV SCH ×3 (01:39→17:53)
[2020-01-29] MEDS: MORPHINE SULFATE 10 MG/ML INJ IV PRN ×2 (04:32→21:32)
--- NOTE | 2020-01-29 08:15 | PDOC PROGRESS REPORT ---
Subjective Progress Note for:: 01/29/20 Subjective:: Sitting up in chair this morning feels better Reason For Visit: SPLEEN LIVER PANCREASE MASS PREOP Physical Exam Vital Signs: Temp Pulse Resp BP Pulse Ox 98.7 F 118 H 16 150/72 H 97 01/29/20 04:04 01/29/20 04:04 01/29/20 04:04 01/29/20 04:04 01/29/20 04:04 Intake & Output 01/28/20 01/29/20 01/30/20 06:59 06:59 06:59 Intake Total 5210 2593 Output Total 2310 195 Balance 2900 2398 Weight 101.8 kg General appearance: PRESENT: no acute distress Head exam: PRESENT: normocephalic Eye exam: PRESENT: EOMI Ear exam: PRESENT: normal external ear exam Mouth exam: PRESENT: moist Neck exam: PRESENT: full ROM Respiratory exam: PRESENT: clear to auscultation celia Cardiovascular exam: PRESENT: RRR Pulses: PRESENT: normal radial pulses, normal femoral pulses Vascular exam: PRESENT: normal capillary refill Breast: PRESENT: Normal GI/Abdominal exam: PRESENT: soft Rectal exam: PRESENT: deferred Extremities exam: PRESENT: full ROM Musculoskeletal exam: PRESENT: full ROM Neurological exam: PRESENT: alert, awake, oriented to person, oriented to place Psychiatric exam: PRESENT: appropriate affect Skin exam: PRESENT: dry Results Laboratory Results: 01/28/20 04:23 01/28/20 04:23 Assessment & Plan - Time Anticipated Discharge Disposition: Home, Self Care Anticipated Discharge Timeframe: unk - Plan Summary Plan Summary: Pression status post distal pancreatectomy splenectomy with partial hepatectomy and abdominal wall hernia repair. Postop day 2 today. Patient feeling better passing flatus. Nirav-Ortega drain putting out some small amounts of serosanguineous fluid. Patient tolerating a full liquid diet. Plan we will increase activity today incentive spirometer.
[2020-01-29] MEDS: INSULIN LISPRO 100 UNIT/ML 3 ML VIAL SUBCUT SCH ×4 (08:34→21:33)
[2020-01-29] MEDS: FAMOTIDINE INJ/PF 20 MG/2 ML SDV IV SCH ×2 (10:38→21:32)
[2020-01-29] MEDS: HYDROMORPHONE HCL INJ/PF 2 MG/ML AMPULE IV PRN ×2 (11:46→17:58)
[2020-01-29] MEDS: POTASSI CL 20 MEQ/1/2NS 1L 20 MEQ/1,000 ML RTUINJ IV PRN (12:49)
[2020-01-30] MEDS: CEFAZOLIN SODIUM 2 GM in DEXTROSE 5%-WATER 100 ML IV SCH ×3 (01:59→17:47)
[2020-01-30] MEDS: HYDROMORPHONE HCL INJ/PF 2 MG/ML AMPULE IV PRN ×3 (02:09→20:32)
[2020-01-30] MEDS: POTASSI CL 20 MEQ/1/2NS 1L 20 MEQ/1,000 ML RTUINJ IV PRN ×2 (02:09→20:33)
[2020-01-30] MEDS: INSULIN LISPRO 100 UNIT/ML 3 ML VIAL SUBCUT SCH ×4 (08:00→22:41)
[2020-01-30] MEDS: FAMOTIDINE INJ/PF 20 MG/2 ML SDV IV SCH ×2 (09:10→22:40)
--- NOTE | 2020-01-30 12:26 | PDOC PROGRESS REPORT ---
Subjective Progress Note for:: 01/30/20 Subjective:: feels well sitting up in chair Reason For Visit: SPLEEN LIVER PANCREASE MASS PREOP Physical Exam Vital Signs: Temp Pulse Resp BP Pulse Ox 97.9 F 107 H 20 157/82 H 97 01/30/20 10:00 01/30/20 07:00 01/30/20 07:00 01/30/20 07:00 01/30/20 07:00 Intake & Output 01/29/20 01/30/20 01/31/20 06:59 06:59 06:59 Intake Total 2593 2710 Output Total 195 10 Balance 2398 2700 Head exam: PRESENT: normocephalic Eye exam: PRESENT: EOMI Ear exam: PRESENT: normal external ear exam Mouth exam: PRESENT: moist Neck exam: PRESENT: full ROM Respiratory exam: PRESENT: clear to auscultation celia Cardiovascular exam: PRESENT: RRR Pulses: PRESENT: normal radial pulses, normal femoral pulses Vascular exam: PRESENT: normal capillary refill Breast: PRESENT: Normal GI/Abdominal exam: PRESENT: firm Rectal exam: PRESENT: deferred Extremities exam: PRESENT: full ROM Musculoskeletal exam: PRESENT: full ROM Neurological exam: PRESENT: alert, awake, oriented to person, oriented to place Psychiatric exam: PRESENT: appropriate affect Skin exam: PRESENT: dry Results Laboratory Results: 01/28/20 04:23 01/28/20 04:23 Assessment & Plan - Time Anticipated Discharge Disposition: Home, Self Care Anticipated Discharge Timeframe: within 24 hours - Plan Summary Plan Summary: doing well will arrange for post splenectomy vaccines today soft diet homein am
[2020-01-30] MEDS ORDERED: MENINGOCOCCAL VAC A,C,Y,W-135 DIP/PF 0.5 ML VIAL IM ONE (14:00)
[2020-01-30] MEDS ORDERED: PNEUMOC 13-VAL CONJ-DIP CRM/PF 0.5 ML DISP.SYRIN IM ONE (14:00)
[2020-01-30] MEDS ORDERED: HAEMPH B POLYSAC CONJ-MENIN/PF 0.5 ML VIAL IM ONE (14:00)
[2020-01-31] MEDS: MORPHINE SULFATE 10 MG/ML INJ IV PRN (00:45)
[2020-01-31] MEDS: CEFAZOLIN SODIUM 2 GM in DEXTROSE 5%-WATER 100 ML IV SCH (02:43)
[2020-01-31] MEDS: HYDROMORPHONE HCL INJ/PF 2 MG/ML AMPULE IV PRN (02:44)
--- NOTE | 2020-01-31 07:28 | PDOC DISCHARGE SUMMARY ---
General - Admit/Disc Date/PCP Admission Date/Primary Care Provider: 01/27/20 05:23 LAZARO JOLLEY DO Discharge Date: 01/31/20 - Discharge Diagnosis Final Diagnosis: pancreatic mass,ventral hernia - Assessment Summary: This patient was brought to the hospital with a known history of renal carcinoma status post left nephrectomy with a large ventral hernia and a pancreatic mass. 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 He was also noted to have a large probable metastatic deposit in the left lobe of his liver which was also resected at the time of surgery. He tolerated the procedure well and postoperatively had routine benign postoperative course. Clear liquid diet was started postop day 1 which was slowly advanced to a soft diet by the time of discharge. He had no surgical complications during his hospital stay he is now tolerating a soft diet his wound is clean and dry has a Nirav-Ortega drain remaining in place which will be removed at a later date. He will be discharged with Percocet for pain management he will follow up with me in surgical clinic in 7 to 10 days. Pathology is currently pending. - Additional Information Resuscitation Status: Full Code Discharge Diet: As Tolerated Discharge Activity: No Lifting Over 10 Pounds Referrals: OLGA OLIVIER MD [ACTIVE STAFF] - (In 1-2 weeks to discuss results of pathology report. Please call office to arrange. ) LAZARO JOLLEY DO [Primary Care Provider] - Prescriptions: Oxycodone HCl/Acetaminophen [Percocet 10-325 Mg Tablet] 1 each PO Q6HP PRN #20 tablet PRN Reason: Home Medications: Amlodipine Besylate [Norvasc 5 mg Tablet] 5 mg PO QHS 01/24/20 Aspirin [Lo-Dose Aspirin EC] 81 mg PO DAILY 01/24/20 Cholecalciferol (Vitamin D3) [Vitamin D3 1000 Unit Tablet] 5,000 unit PO DAILY 01/24/20 Cyanocobalamin (Vitamin B-12) [Vitamin B12] 2,500 mcg PO DAILY 01/24/20 Fenofibrate,Micronized [Fenofibrate] 135 mg PO QHS 01/24/20 Glipizide [Glucotrol Xl] 10 mg PO BID 01/24/20 Insulin Aspart [Novolog] 5 each SQ BIDBL 01/24/20 Liraglutide [Victoza 2-Eddie] 0.6 mg SQ DAILY 01/24/20 Metformin HCl [Metformin HCl ER] 1,000 mg PO BID 01/24/20 Rosuvastatin Calcium 5 mg PO QHS 01/24/20 Sub-Q Insulin Device, 40 Unit [Vgo 40] 1 each MC ASDIR PRN 01/24/20 Insulin Aspart [Novolog Insulin (Aspart) 100 unit/mL] 8 each SUBCUT WSUPPER Oxycodone HCl/Acetaminophen [Percocet 10-325 Mg Tablet] 1 each PO Q6HP PRN #20 tablet 01/31/20 History of Present Illiness History of Present Illness: IRAM FINK is a 59 year old male Physical Exam Vital Signs: Temp Pulse Resp BP Pulse Ox 98.3 F 100 20 141/74 H 98 01/31/20 00:26 01/31/20 00:26 01/31/20 00:26 01/31/20 00:26 01/31/20 00:26 Intake & Output 01/30/20 01/31/20 02/01/20 06:59 06:59 06:59 Intake Total 2710 1980 Output Total 10 15 Balance 2700 1965 Weight 95.8 kg Results Laboratory Results: WBC 14.9 10^3/uL (4.0-10.5) H 01/28/20 04:23 RBC 4.32 10^6/uL (4.35-5.55) L 01/28/20 04:23 Hgb 13.6 g/dL (13.5-17.0) 01/28/20 04:23 Hct 39.8 % (37.9-51.0) 01/28/20 04:23 MCV 92 fl (80-97) 01/28/20 04:23 MCH 31.4 pg (27.0-33.4) 01/28/20 04:23 MCHC 34.1 g/dL (32.0-36.0) 01/28/20 04:23 RDW 12.8 % (11.5-14.0) 01/28/20 04:23 Plt Count 253 10^3/uL (150-450) 01/28/20 04:23 Lymph % (Auto) 5.4 % (13-45) L 01/28/20 04:23 Aurora % (Auto) 11.8 % (3-13) 01/28/20 04:23 Eos % (Auto) 0.0 % (0-6) 01/28/20 04:23 Baso % (Auto) 0.1 % (0-2) 01/28/20 04:23 Absolute Neuts (auto) 12.3 10^3/uL (1.7-8.2) H 01/28/20 04:23 Absolute Lymphs (auto) 0.8 10^3/uL (0.5-4.7) 01/28/20 04:23 Absolute Monos (auto) 1.7 10^3/uL (0.1-1.4) H 01/28/20 04:23 Absolute Eos (auto) 0.0 10^3/uL (0.0-0.6) 01/28/20 04:23 Absolute Basos (auto) 0.0 10^3/uL (0.0-0.2) 01/28/20 04:23 Seg Neutrophils % 82.7 % (42-78) H 01/28/20 04:23 Sodium 132.3 mmol/L (137-145) L 01/28/20 04:23 Potassium 5.1 mmol/L (3.6-5.0) H 01/28/20 04:23 Chloride 99 mmol/L (98-107) 01/28/20 04:23 Carbon Dioxide 20 mmol/L (22-30) L 01/28/20 04:23 Anion Gap 13 (5-19) 01/28/20 04:23 BUN 21 mg/dL (7-20) H 01/28/20 04:23 Creatinine 1.50 mg/dL (0.52-1.25) H 01/28/20 04:23 Est GFR ( Amer) 58 (>60) L 01/28/20 04:23 Est GFR (MDRD) Non-Af 48 (>60) L 01/28/20 04:23 Glucose 319 mg/dL (75-110) H 01/28/20 04:23 POC Glucose 313 mg/dL (70-110) H 01/30/20 21:59 Calcium 8.8 mg/dL (8.4-10.2) 01/28/20 04:23 Total Bilirubin 0.6 mg/dL (0.2-1.3) 01/28/20 04:23 Direct Bilirubin 0.4 mg/dL (0.0-0.4) 01/28/20 04:23 Neonat Total Bilirubin Not Reportable 01/28/20 04:23 Neonat Direct Bilirubin Not Reportable 01/28/20 04:23 Neonat Indirect Bili Not Reportable 01/28/20 04:23 AST 388 U/L (17-59) H 01/28/20 04:23 ALT 201 U/L (<50) H 01/28/20 04:23 Alkaline Phosphatase 47 U/L (38-126) 01/28/20 04:23 Total Protein 6.0 g/dL (6.3-8.2) L 01/28/20 04:23 Albumin 3.9 g/dL (3.5-5.0) 01/28/20 04:23 COVID-19 Source See comment 01/24/20 11:05 COVID-19 (ANA) Not Detected (Not Detect) 01/24/20 11:05 Blood Type A POSITIVE 01/27/20 09:15 Antibody Screen NEGATIVE 01/27/20 09:15
[2020-01-31 07:57] VITALS: BP 157/82
[2020-01-31] MEDS ORDERED: INFLUENZA QUAD (6MOS+) 2020-21 VAC 0.5 ML SYR IM ONE (08:00)
== END 2020-01-31 09:21 | disposition home or self-care (01) | DRG 358 ==
LOC: INOR 05:23 → EDSTATUS 07:30 → 5 14:54
PROVIDERS: ADMIT Surgery; ATTEND Surgery
PROC: 0FBG0ZZ Excision of Pancreas, Open Approach (ICD-10-PCS; 2020-01-27)
PROC: 0FB20ZX Excision of Left Lobe Liver, Open Approach, Diagnostic (ICD-10-PCS; 2020-01-27)
PROC: 07TP0ZZ Resection of Spleen, Open Approach (ICD-10-PCS; principal; 2020-01-27 09:30)
DX: C78.89 Secondary malignant neoplasm of other digestive organs (principal); C78.7 Secondary malignant neoplasm of liver and intrahepatic bile duct; M62.08 Separation of muscle (nontraumatic), other site; I10 Essential (primary) hypertension; E11.9 Type 2 diabetes mellitus without complications; Z86.718 Personal history of other venous thrombosis and embolism; Z90.5 Acquired absence of kidney; Z85.528 Personal history of other malignant neoplasm of kidney; Z85.820 Personal history of malignant melanoma of skin; Z79.84 Long term (current) use of oral hypoglycemic drugs
CPT/HCPCS: 36415; 794; 80048; 80053; 82962; 85025; 86850; 86900; 86901; 87635; 88307; 88313; 88341; 88342; 90647; 90670; 90734; 93005; 93010; 94799; C1758; C9290; C9803; J0690; J1100; J1170; J1815; J2250; J2270; J2405; J2704; J2710; J3010; J3480; J3490; J7060; S0028

== ENCOUNTER 2020-02-15 10:00 | Day surgery (SDC) | payer BC, OTHER ==
[~2020-02-15 10:00] MED LIST changes: -CEFAZOLIN 2 GM/D5W RTU 2 GM/50 ML RTUPB IV ONE; -LIDOCAINE 0.5% INJ-PF (5 MG/ML) 50 ML SDV SUBCUT PRN; -METRONIDAZOLE 500 MG/NS RTU 500 MG/100 ML RTUPB IV ONE; -METRONIDAZOLE 500 MG/NS RTU 500 MG/100 ML RTUPB IV PRN; -NORMAL SALINE 1000 ML (RENAL PATIENTS) IV PRN
[2020-02-15] MEDS ORDERED: MIDAZOLAM 2 MG/2 ML INJ ONE (10:50)
[2020-02-15] MEDS ORDERED: ONDANSETRON HCL INJ/PF 4 MG/2 ML SDV ONE (10:50)
[2020-02-15] MEDS ORDERED: PROPOFOL INJ 200 MG/20 ML VIAL IV ONE ×2 (10:50→13:30)
[2020-02-15] MEDS ORDERED: FENTANYL CITRATE INJ/PF 100 MCG/2 ML AMPUL ONE (10:50)
[2020-02-15] MEDS ORDERED: CEFAZOLIN 2 GM/D5W RTU 2 GM/50 ML RTUPB IV ONE (11:49)
[2020-02-15 11:55] LABS: ABSOLUTE BASOPHILS # (AUTO) 0.3 10^3/uL (0.0-0.2); ABSOLUTE EOSINOPHILS # (AUTO) 0.3 10^3/uL (0.0-0.6); ABSOLUTE LYMPHOCYTES (AUTO) 1.7 10^3/uL (0.5-4.7); ABSOLUTE MONOCYTES (AUTO) 1.5 10^3/uL (0.1-1.4); ABSOLUTE NEUT (AUTO) 8.4 10^3/uL (1.7-8.2); BASOPHILS % (AUTO) 2.5 % (0-2); EOSINOPHILS % (AUTO) 2.6 % (0-6); HEMATOCRIT 35.8 % (37.9-51.0); HEMOGLOBIN 12.8 g/dL (13.5-17.0); MEAN CORPUSCULAR HEMOGLOBIN 32.2 pg (27.0-33.4); MEAN CORPUSCULAR HGB CONC 35.7 g/dL (32.0-36.0); MEAN CORPUSCULAR VOLUME 90 fl (80-97); MONOCYTES % (AUTO) 11.9 % (3-13); PLATELET COUNT 632 10^3/uL (150-450); RED BLOOD COUNT 3.97 10^6/uL (4.35-5.55); TOTAL CELLS COUNTED % (AUTO) 100 %; WHITE BLOOD COUNT 12.2 10^3/uL (4.0-10.5)
[2020-02-15] MEDS ORDERED: HEPARIN SOD (PORCINE) 1,000 UNIT/ML 1 ML VIAL ONE (12:09)
[2020-02-15] MEDS ORDERED: LIDOCAINE 1%/EPINEPHRINE INJ 20 ML VIAL ONE (12:09)
[2020-02-15 12:14] LABS: ANION GAP 12 (5-19); BLOOD UREA NITROGEN 22 mg/dL (7-20); CALCIUM 10.3 mg/dL (8.4-10.2); CARBON DIOXIDE 24 mmol/L (22-30); CHLORIDE 105 mmol/L (98-107); GLUCOSE 83 mg/dL (75-110); POTASSIUM 4.9 mmol/L (3.6-5.0)
[2020-02-15] MEDS ORDERED: PROMETHAZINE HCL INJ 25 MG/1 ML VIAL IV PRN ×2 (13:03)
[2020-02-15] MEDS ORDERED: FENTANYL CITRATE INJ/PF 100 MCG/2 ML AMPUL IV PRN ×3 (13:03)
[2020-02-15] MEDS ORDERED: MEPERIDINE HCL/PF INJ 25 MG/1 ML DISP.SYRIN IV PRN (13:03)
[2020-02-15] MEDS ORDERED: DIPHENHYDRAMINE HCL 50 MG/ML VIAL IV PRN (13:03)
--- NOTE | 2020-02-15 13:30 | Operative Report ---
Nonrecallable Operative Report DATE OF SURGERY: 02/15/20 PREOPERATIVE DIAGNOSIS: Pancreatic cancer POSTOPERATIVE DIAGNOSIS: Same OPERATION: Port-A-Cath placement left chest for chemotherapy infusion. Drainage of left flank seroma. Removal of Nirav-Ortega drain SURGEON: ROSINA ROTH ANESTHESIA: LMAC TISSUE REMOVED OR ALTERED: 240 cc of the serous fluid COMPLICATIONS: None ESTIMATED BLOOD LOSS: 10 cc INTRAOPERATIVE FINDINGS: See note PROCEDURE: Procedure patient was brought to the operating room awake alert stable condition placed on the operating table supine position and given local MAC sedation. The left chest was prepped and draped in usual sterile fashion. A left subclavian area was chosen for the site it was anesthetized 1% lidocaine plain in a left subclavian vein stick was made with a 16-gauge needle through the needle a wire was placed confirmed with fluoroscopy in the superior vena cava. The tear-away introducer dilator was placed over the wire under vision of fluoroscopy. Then the catheter was placed into the tear-away introducer which was torn away. The tip of the catheter was noted to be in the superior vena cava above the right atrium. A point was picked on the left anterior chest wall which was anesthetized 1% lidocaine plain and a transverse incision was made with a 15 blade approximately 2 cm long. A pocket was fashioned with the Bovie cautery to allow for the port. The tunnel maker per supplied with a kit was utilized to tunnel the catheter from the subclavian stick site to the port site. The catheter was attached to the port which was placed into the subcutaneous pocket and that was closed with interrupted 3-0 Vicryl in the subcu cutaneous tissue and 4-0 Biosyn in the subdermal tissue The catheter flowed and withdrew easily. Attention was then turned to the left flank the patient had a previously placed Nirav-Ortega drain in the left flank and a seroma from the previous hernia repair. The skin was prepped with alcohol prep and the seroma was drained approximate 250 cc of clear serous fluid was removed with the 16-gauge needle. The Nirav-Ortega drain was also removed by cutting the suture holding in place and then gently retracting it out. A sterile dressing was applied on both those skin incisions this completed the procedure the patient was transferred recovery in stable condition
--- NOTE | 2020-02-15 13:31 | Discharge Summary ---
Discharge Summary (SDC) - Discharge Final Diagnosis: Pancreatic cancer Date of Surgery: 02/15/20 Discharge Date: 02/15/20 Condition: Good Referrals: LAZARO JOLLEY DO [Primary Care Provider] - Discharge Diet: As Tolerated Discharge Activity: Activity As Tolerated Report the Following to Your Physician Immediately: Vomiting, Unusual Bleeding
--- NOTE | 2020-02-15 14:31 | RADIOLOGY REPORT (SQ) ---
EXAM DESCRIPTION: CHEST SINGLE VIEW IMAGES COMPLETED DATE/TIME: 02/15/2020 2:19 pm REASON FOR STUDY: PORT A CATH COMPARISON: 02/20/2018 EXAM PARAMETERS: NUMBER OF VIEWS: One view. TECHNIQUE: Single frontal radiographic view of the chest acquired. RADIATION DOSE: NA LIMITATIONS: None. FINDINGS: LUNGS AND PLEURA: Stable linear left basilar opacities, likely scarring. No additional ai rspace disease, pleural effusion pneumothorax. MEDIASTINUM AND HILAR STRUCTURES: No masses. Contour normal. HEART AND VASCULAR STRUCTURES: Heart normal in size. Normal vasculature. BONES: No acute findings. HARDWARE: Left subclavian based chest port with catheter tip at SVC. Surgical clips at the left uppe r quadrant. OTHER: No other significant finding. IMPRESSION: Left subclavian approach chest port with tip at SVC. No pneumothorax. Stable left basilar linear opacities, likely scarring. TECHNICAL DOCUMENTATION: JOB ID: [id number] 2010 [employer]- All Rights Reserved Reading location - IP/workstation name: [email or web address]
--- NOTE | 2020-02-15 15:23 | RADIOLOGY REPORT (SQ) ---
EXAM DESCRIPTION: FLUORO/CV PLACEMENT IMAGES COMPLETED DATE/TIME: 02/15/2020 2:26 pm REASON FOR STUDY: PORTACATH PLCMT LEFT SIDE ASSISTED WITH FLUORO IN OR C25.9 MALIGNANT NEOPLASM OF PANCREAS, UNSPECIFIED COMPARISON: None. FLUOROSCOPY TIME: 1.0 minute. 5 images saved to PACS. TECHNIQUE: Intra-operative images acquired during surgical procedure to evaluate progress. NUMBER OF IMAGES: 5 images. LIMITATIONS: None. FINDINGS: Images of the upper chest acquired during port placement. IMPRESSION: IMAGE(S) OBTAINED DURING PROCEDURE. COMMENT: Quality ID [id number]: Final reports for procedures using fluoroscopy that document radiation exp osure indices, or exposure time and number of fluorographic images (if radiation exposure indices are not available) Please consult full operative report of the attending physician for description of the procedure. TECHNICAL DOCUMENTATION: JOB ID: [id number] 2010 [employer]- All Rights Reserved Reading location - IP/workstation name: [email or web address]
[2020-02-15 15:50] VITALS: BP 146/82
== END 2020-02-15 15:20 | disposition home or self-care (01) ==
LOC: OROUT 10:00
PROVIDERS: ATTEND Surgery
DX: C25.9 Malignant neoplasm of pancreas, unspecified (principal); C78.7 Secondary malignant neoplasm of liver and intrahepatic bile duct; L76.34 Postprocedural seroma of skin and subcutaneous tissue following other procedure; Y83.8 Other surgical procedures as the cause of abnormal reaction of the patient, or of later complication, without mention of misadventure at the time of the procedure; K45.8 Other specified abdominal hernia without obstruction or gangrene; Q60.0 Renal agenesis, unilateral; I10 Essential (primary) hypertension; E11.9 Type 2 diabetes mellitus without complications; Z03.818 Encounter for observation for suspected exposure to other biological agents ruled out; Z85.820 Personal history of malignant melanoma of skin; Z87.09 Personal history of other diseases of the respiratory system; Z86.718 Personal history of other venous thrombosis and embolism; Z85.528 Personal history of other malignant neoplasm of kidney; Z90.81 Acquired absence of spleen; Z90.2 Acquired absence of lung [part of]; Z90.411 Acquired partial absence of pancreas; Z90.5 Acquired absence of kidney; Z79.4 Long term (current) use of insulin; Z79.899 Other long term (current) drug therapy; Z79.82 Long term (current) use of aspirin
CPT/HCPCS: 10160; 36561; C1788; 300; 36415; 71045; 77001; 80048; 82962; 85025; 87635; C9803; J0690; J1642; J1644; J2250; J2405; J2704; J3010; J3490; Q9967

== ENCOUNTER → 2020-02-22 | Outpatient (CLI) | payer BC, OTHER ==
--- NOTE | 2020-02-23 09:55 | RADIOLOGY REPORT (SQ) ---
EXAM DESCRIPTION: PET CT SKULL/THIGH IMAGES COMPLETED DATE/TIME: 02/22/2020 1:34 pm REASON FOR STUDY: C25.9 MALIGNANT NEOPLASM OF PANCREAS, UNSPECIFIED C25.9 MALIGNANT NEOPLASM OF BOYLE CREAS, UNSPECIFIED COMPARISON: CT abdomen pelvis dated 01/05/2020 RADIONUCLIDE AND DOSE: 10.58 mCi F18 FDG The route of agent administration: Intravenous FASTING BLOOD SUGAR: 140 mg/dl CONTRAST TYPE AND DOSE: No CT contrast given. TECHNIQUE: Blood glucose level was verified. Above dose of FDG was injected intravenously. 2-D seg mented attenuation correction images were obtained from the base of the skull to the midthighs. Nonc ontrast CT images were obtained for attenuation correction and fusion with emission images. CT image s were performed without oral or intravenous contrast and are not sensitive for parenchymal lesions. A series of overlapping emission PET images were obtained. Images reviewed and manipulated at [facility] work station by the radiologist. Images stored on PACS. LIMITATIONS: None. FINDINGS: HEAD AND NECK: No areas of abnormal metabolic activity in the soft tissues of the head and neck. CHEST: No areas of abnormal metabolic activity in the chest. ABDOMEN AND PELVIS: No areas of abnormal metabolic activity in the abdomen or pelvis. Expected physi ologic activity is present in the genitourinary system and bowel. PROXIMAL LOWER EXTREMITIES: No areas of abnormal metabolic activity in the soft tissues of the lower extremities. BONES: No abnormal metabolic activity in the visualized skeleton. ADDITIONAL CT FINDINGS: Soft tissue attenuation in the left renal bed fossa previously described is n o longer identified. Presumably surgically removed. The patient is status post splenectomy as well. There is a small fluid collection now present at the tail the pancreas which measures 3.9 x 2.9 cm. There is a fluid collection or air decreased attenuation in the left lobe of the liver which measur es 5.0 x 2.9 cm. This is new from prior PET-CT as well. Left lateral abdominal wall hernia is again noted. Mild mesenteric inflammation. OTHER: No other significant findings. IMPRESSION: No PET avid metastatic disease. Focal 5.0 x 2.9 cm fluid collection in the left lobe of the liver. Focal 3.9 x 2.9 cm fluid collection at the tail the pancreas most likely postsurgical se bailey or hematoma. TECHNICAL DOCUMENTATION: JOB ID: [id number] [employer]- All Rights Reserved Reading location - IP/workstation name: [email or web address]
== END ==
LOC: RAD 11:19
PROVIDERS: ATTEND Internal Medicine Hematology & Oncology
DX: C25.9 Malignant neoplasm of pancreas, unspecified (principal); R60.9 Edema, unspecified
CPT/HCPCS: 78815; A9552